=== PATIENT | male | born 1965 | race Caucasian/White ===

== ENCOUNTER → 2016-07-11 | Outpatient (CLI) | payer OTHER ==
--- NOTE | 2016-07-11 14:44 | CT ---
CT Left Lower Extremity History: Preoperative evaluation for left hip replacement. Comparison: Left hip April 18, 2016. Technique: Spiral imaging was obtained through the left hip at 1.25-mm slice thickness along with spi ral imaging through the left knee at 2.5-mm slice thickness. Data was transmitted for subsequent SAMIA hip replacement. Dose reduction techniques were utilized. Findings: The left hip joint demonstrates severe hip joint space narrowing with osteophyte formation, subchondral cyst formation, and hip joint space narrowing. Mild osteoarthritis is present in the rig ht hip. Moderate degenerative change is present in the lumbar spine, eccentric to the right at L4-L5 and left at L5-S1. Moderate to severe bilateral neural foraminal stenosis is present from L4 through S1. Bridging osteophytes span the sacroiliac joints bilaterally. The soft tissues are unremarkable. There is mild degenerative change in the knee with small tricompartmental osteophytes without signifi cant joint space narrowing. Impression: 1. Degenerative changes in the left hip as detailed above. Data was transmitted for subsequent SAMIA h ip replacement surgery. 2. Moderate degenerative change in the lumbar spine. 3. Degenerative change in the sacroiliac joints. 4. Additional findings as above.
== END ==
LOC: FIMAGING 13:46
PROVIDERS: ATTEND Orthopaedic Surgery
DX: Z01.818 Encounter for other preprocedural examination (principal); M16.0 Bilateral primary osteoarthritis of hip; M51.36 Other intervertebral disc degeneration, lumbar region; M51.37 Other intervertebral disc degeneration, lumbosacral region

== ENCOUNTER 2016-07-15 10:18 | Inpatient (IN) | payer OTHER ==
[~2016-07-15 10:18] MED LIST: ACETAMINOPHEN 325 MG TAB PO ONE; CEFAZOLIN 2 GM/DEXTR 100 ML IV ONE; CHLORHEXIDINE GLUC HIBICLENS 118 ML BTL TP ONE; DEXAMETHASONE 4 MG/ML VIAL IVP ONE; FAMOTIDINE 20 MG TAB PO ONE; ROPI/epiNEPH/KETOROLAC JOINT COCKTAIL IU ONE; SKIN ADHESIVE (DERMABOND) 1 EACH TP ONE; TRANEXAMIC ACID 3,000 MG in NS 50 ML IRR ONE; TRANEXAMIC ACID 3,000 MG/50 ML BAG IRR ONE
[2016-07-15] MEDS ORDERED: LIDOCAINE 1% 5 ML SDV ONE (10:57)
[2016-07-15] MEDS ORDERED: FAMOTIDINE 20 MG TAB ONE (11:29)
[2016-07-15] MEDS ORDERED: DEXAMETHASONE 4 MG/ML VIAL ONE (11:30)
[2016-07-15] MEDS ORDERED: ACETAMINOPHEN 325 MG TAB ONE (11:30)
[2016-07-15] MEDS ORDERED: CEFAZOLIN 2 GM/DEXTROSE/100 ML BAG IV ONE (11:30)
[2016-07-15] MEDS ORDERED: MIDAZOLAM 2 MG/2 ML VIAL ONE (12:27)
[2016-07-15] MEDS ORDERED: fentaNYL 100 MCG/2 ML INJ ONE (12:40)
[2016-07-15] MEDS ORDERED: PROPOFOL/EMULSION 500 MG/50 ML BOTTLE IV ONE ×2 (12:48→13:26)
[2016-07-15] MEDS ORDERED: LACTULOSE 20 GM/30 ML UDCUP PO PRN (12:58)
[2016-07-15] MEDS ORDERED: TEMAZEPAM 15 MG CAP PO PRN (12:58)
[2016-07-15] MEDS ORDERED: ONDANSETRON DISINTEGRATING 4 MG TAB PO PRN (12:58)
[2016-07-15] MEDS ORDERED: DIPHENOXYLATE/ATROPINE LOMOTIL 1 TAB PO PRN (12:58)
[2016-07-15] MEDS ORDERED: PROMETHAZINE HCL 25 MG SUPPR PR PRN (12:58)
[2016-07-15] MEDS ORDERED: MAGNESIUM HYDROXIDE 30 ML UDCUP PO PRN (12:58)
[2016-07-15] MEDS ORDERED: ONDANSETRON 4 MG/2 ML VIAL IVP PRN (12:58)
[2016-07-15] MEDS ORDERED: PROMETHAZINE HCL 25 MG/ML INJ IVP PRN (12:58)
[2016-07-15] MEDS ORDERED: METOCLOPRAMIDE 10 MG/2 ML VIAL IVP PRN (12:58)
[2016-07-15] MEDS ORDERED: BISACODYL 10 MG SUPP PR PRN (12:58)
[2016-07-15] MEDS ORDERED: diphenhydrAMINE 25 MG CAP PO PRN (12:58)
[2016-07-15] MEDS ORDERED: PHARMACY PAIN CONSULT 1 EA MISC PRN (12:58)
[2016-07-15] MEDS ORDERED: POLYETHYLENE GLYCOL 3350 17 GM PKT PO PRN (12:58)
[2016-07-15] MEDS ORDERED: SKIN ADHESIVE (DERMABOND) 1 EACH TP ONE (13:54)
--- NOTE | 2016-07-15 15:02 | POSTOPPROG ---
Post Op Note Date of Operation: 07/15/16 Surgeon: Josi Bowen Electrotype Molder: Concepcion Bowen PAc Anesthesiologist: Warm Anesthesia: Spinal Pre-op Diagnosis: L hip DJD Post-op Diagnosis: same Indication: PAIN Procedure: LTHA with robotic assist Findings: DJDhip Inf/Abcess present in the surg proc area at time of surgery?: No EBL: 100-500
--- NOTE | 2016-07-15 15:12 | DX ---
Pelvis Single View HISTORY: Hip pain. Postoperative evaluation. COMPARISON: March 2016. FINDINGS: Post surgical changes are seen over interval of a left total hip arthroplasty with good ali gnment and appearance. No evidence for periprosthetic lucency or fracture or dislocation. There is ap propriate soft tissue change for the immediate post surgical appearance. Mild degenerative change is seen in the right hip. There is osseous fullness superiorly on the right and possible subcortical cys t suggesting underlying femoral acetabular impingement, cam type. Degenerative change is seen in the lower lumbar spine. IMPRESSION: Postoperative changes of a left total hip arthroplasty with good alignment and appearance .
--- NOTE | 2016-07-15 16:14 | DX ---
Interoperative fluoroscopy for hip surgery. HISTORY: Left hip surgery. Pain. Fluoroscopy time 2.4 seconds. Cumulative dose 0.3 mGy. FINDINGS: Intraoperative image demonstrates postsurgical changes of the left hip arthroplasty in prog ress with no evidence for complication. IMPRESSION: Intraoperative fluoroscopy provided for left hip surgery.
[2016-07-15] MEDS: oxyCODONE IR 5 MG TAB PO PRN ×4 (16:15→23:05)
[2016-07-15] MEDS: LR 1,000 ML IV SCH (16:37)
[2016-07-15] MEDS: CYCLOBENZAPRINE 10 MG TAB PO PRN (16:54)
[2016-07-15] MEDS: ACETAMINOPHEN 325 MG TAB PO SCH (17:01)
[2016-07-15] MEDS: ASPIRIN 325 MG TAB PO SCH (19:56)
[2016-07-15] MEDS: FAMOTIDINE 20 MG TAB PO SCH (19:57)
[2016-07-15] MEDS: ceFAZolin 2 GM/DEXTROSE 100 ML IV SCH (19:57)
[2016-07-15] MEDS: SENNOSIDES/DOCUSATE SODIUM TAB PO SCH (19:59)
--- NOTE | 2016-07-15 22:06 | GOP ---
[f rep st] OPERATIVE REPORT DATE OF OPERATION: 07/15/2016 SURGEON: David Bowen MD FLEET MANAGER/DISPATCH: Concepcion Bowen PA-C ANESTHESIA: Spinal. PREOPERATIVE DIAGNOSIS: Left hip osteoarthritis. POSTOPERATIVE DIAGNOSIS: Left hip osteoarthritis. PROCEDURE PERFORMED: Left total hip arthroplasty with computer navigation and robotic assist. FINDINGS: ESTIMATED BLOOD LOSS: 200 cc. IMPLANTS: Accolade II size 5 at 127, acetabular component a 54 mm Tritanium. The liner is a Trident X3 36 mm. The head is a Biolox Delta 36 mm +0. INDICATIONS: The patient has progressively worsening arthritis of the hip which has failed medical management. The patient understands the treatment option including continued non-operative care and has selected surgical intervention. The patient has decided to undergo total hip arthroplasty via the direct anterior approach understanding the risks of the procedure including , but not limited to, neurovascular injury, infection, persistent pain, component wear and loosening, deep venous thrombosis, pulmonary embolism, limb length inequality (including dislocation), and intraoperative fractures. DESCRIPTION OF PROCEDURE: After proper identification of the patient including verification and marking the surgical site, the patient was brought to the operating room and placed in the supine position. All bony prominences were well padded. Anesthesia was induced without complication and intravenous prophylactic antibiotics were administered prior to skin incision. After prepping and draping in the usual sterile fashion, attention was drawn to the contralateral pelvis for attachment of the computer navigation tracker. Three percutaneous incisions were made over the iliac crest and the pelvic tracker was affixed using threaded 3.5 mm pins yielding excellent fixation. Using computer navigation the patient's leg length and topographical pelvic anatomy was registered without complication. Attention was then drawn to surgical exposure of the hip. An incision was made with a #10 Bard Hang blade starting 3 cm lateral and 3 cm distal to the anterior superior iliac spine measuring 8 cm to 10 cm and coursing distally toward the greater trochanter. The skin and subcutaneous tissues were divided sharply down the fascia mani. The fascia mani was incised in line with the skin incision exposing the underlying tensor fascia mani muscle. This muscle was bluntly elevated from the fascia and the first extracapsular Cobra retractor was placed laterally at the junction of the superior femoral neck and greater trochanter. The lateral femoral circumflex vessels were identified, cauterized and divided with the Aquamantys bipolar cautery. The deep investing fascia of the TFL was divided to allow proper mobilization of the muscle preventing damage during retraction. The reflected head of the rectus femoris muscle was elevated off the anterior hip capsule and a medial Cobra retractor was placed just proximal to the lesser trochanter. The anterior capsulotomy was made sharply from the superolateral acetabulum to the saddle junction of the superior femoral neck and greater trochanter, then coursing inferomedial towards the lesser trochanter. The retractors were then placed in the intracapsular position for femoral neck osteotomy. Corresponding to preoperative templating the osteotomy was made with the oscillating saw protecting the greater trochanter and soft tissues. The femoral head was removed from the acetabulum with a corkscrew and confirmed to be severely arthritic with exposed bone, deformity and osteophytes. Similar finding were confirmed in the acetabulum. The Arch table extension was then placed in 40 degrees external rotation. Attention was then drawn to the acetabular preparation. After placement of the anterior and posterior Cobra retractors outside the labrum and intrascapular the circumferential labrum was removed sharply. The foveal contents were then removed and hemostasis obtained with cautery. The anatomy of the acetabulum was then registered using computer navigation. The first reamer selected was sized using the removed femoral head. Reaming began with robotic assist at 40 degrees of abduction and 20 degrees of anteversion using computer navigation. Reaming ceased 0 mm less than the definitive acetabular component. The final acetabular component was inserted using the computer to achieve proper orientation yielding excellent purchase and stability in the acetabulum. The final acetabular liner was then placed and its seating confirmed. Attention was then turned to the femur. The Arch table extension was placed in extension and adduction delivering the osteotomized femoral neck into the wound. A 2-pronged femoral elevator was placed at the calcar and another at the tip of the greater trochanter. The posterolateral capsule was released with cautery allowing mobilization of the femur lateral and anterior for preparation. The external rotators were visualized and preserved. A curette and rongeur were used to open the starting point for broaching. Serial broaching started with the #0 broach and ended with the broach that exhibited excellent fit in the proximal femur. A change in pitch during mallet strikes was accompanied by the inability to advance the broach any further. The trial reduction was performed and fluoroscopic navigation was utilized to check limb length. Adjustments were made to equalize limb length accordingly. After the final trials were accepted they were removed and the wound was copiously lavaged. The femoral component was seated to the same depth as the final broach and the femoral head was impacted onto the clean trunnion. The hip was then reduced for the final time and once more fluoroscopic navigation used to check that limb length equality was achieved. The wound was irrigated and closed in layers, the fascia mani with 2-0 Quill, the subcutaneous tissue with a 2-0 Quill, and the skin with Dermabond, including the small incisions for computer navigation. Sterile dressings were applied. Final sharps and sponge counts were accurate. The patient was then transferred to a hospital bed and brought to the recovery room in stable condition. /[id number]/MODL MTDD
[2016-07-16] MEDS: ACETAMINOPHEN 325 MG TAB PO SCH ×2 (00:41→05:24)
[2016-07-16] MEDS: CYCLOBENZAPRINE 10 MG TAB PO PRN ×2 (00:44→09:14)
[2016-07-16] MEDS: LR 1,000 ML IV SCH (00:45)
[2016-07-16] MEDS: oxyCODONE IR 5 MG TAB PO PRN ×3 (02:12→08:34)
[2016-07-16 05:05] LABS: HEMOGLOBIN 11.9 g/dL (13.7-17.5)
[2016-07-16] MEDS: ceFAZolin 2 GM/DEXTROSE 100 ML IV SCH (05:25)
[2016-07-16 08:02] VITALS: BP 104/72; PULSE 57; RESP 14; TEMP 97.7; O2SAT 95
[2016-07-16] MEDS: SENNOSIDES/DOCUSATE SODIUM TAB PO SCH (08:33)
[2016-07-16] MEDS: ASPIRIN 325 MG TAB PO SCH (08:33)
[2016-07-16] MEDS: FAMOTIDINE 20 MG TAB PO SCH (08:34)
--- NOTE | 2016-07-16 10:16 | SOAPPROG ---
SOAP Progress Note Assessment/Plan: Assessment: Josr is doing well POD 1 s/p L JC 1. pain management: pain well controlled on oral pain medications. 2. VTE ppx: recommend ASA 325 mg daily. cont KAROL jackson 3. Anemia: level is expected initially postop. asymptomatic. 4. d/c planning: d/c to home today. Plan: 07/16/16 10:15 Subjective: Josr is doing well today, denies SOB, chest pain and N/V. Objective: Vital Signs Temp Pulse Resp BP Pulse Ox 36.5 C 57 L 14 104/72 95 07/16/16 08:00 07/16/16 08:00 07/16/16 08:00 07/16/16 08:00 07/16/16 08:00 Laboratory Results 07/16/16 04:19 07/15/16 07/16/16 07/17/16 05:59 05:59 05:59 Intake Total 2500 Output Total 400 1375 Balance -400 1125 LLE: incision dressing is clean and dry, NVI, +pf/df ICD10 Worksheet Patient Problems: Problems Problem Status Diagnosed Primary localized osteoarthritis of left hip Acute
--- NOTE | 2016-07-21 10:57 | GDS ---
[f rep st] DISCHARGE SUMMARY ADMISSION DIAGNOSIS: Left hip osteoarthritis. DISCHARGE DIAGNOSIS: Left hip osteoarthritis. PROCEDURE: Left total hip arthroplasty. VTE PROPHYLAXIS: Aspirin recommended for 3 weeks daily. BRIEF DESCRIPTION OF HOSPITAL STAY: Patient was admitted for an elective joint arthroplasty. The pa tient tolerated the procedure well and has passed physical therapy. The patient was given appropriat e antibiotic prophylaxis and venous thromboembolism prophylaxis. The patient's pain was well control led on oral pain medication, patient was holding down food, and had urinated. Decision was made to d ischarge the patient. The patient was given post-operative prescriptions pre-operatively. PLAN: Please follow up as scheduled on 08/04 at 10:00 a.m. /[id number]/MODL
== END 2016-07-16 11:04 | disposition home or self-care (01) | DRG 470 ==
LOC: F3N 10:18
PROVIDERS: ADMIT Orthopaedic Surgery; ATTEND Orthopaedic Surgery
PROC: 8E0YXCZ Robotic Assisted Procedure of Lower Extremity (ICD-10-PCS; principal; 2016-07-15 12:15)
PROC: 0SRB04Z Replacement of Left Hip Joint with Ceramic on Polyethylene Synthetic Substitute, Open Approach (ICD-10-PCS; principal; 2016-07-15 12:15)
DX: M16.12 Unilateral primary osteoarthritis, left hip (principal)
CPT/HCPCS: 97110-GP; 97161-GP; 97165-GO; J0171; J0690; J1100; J1885; J2250; J2704; J2795; J3010

== ENCOUNTER 2018-08-24 21:35 | Emergency (ER) | payer SELFPAY ==
[2018-08-24 21:43] VITALS: BP 131/95
[2018-08-24] MEDS ORDERED: CLINDAMYCIN 150 MG CAP PO ONE (23:16)
[2018-08-24] MEDS ORDERED: CLINDAMYCIN 150MG PREPACK#6 BTL TAKEHOME ONE (23:16)
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
== END 2018-08-24 23:41 | disposition home or self-care (01) ==
DX: L03.116 Cellulitis of left lower limb (principal); V18.0XXA Pedal cycle driver injured in noncollision transport accident in nontraffic accident, initial encounter; Y92.480 Sidewalk as the place of occurrence of the external cause

== ENCOUNTER 2018-08-28 21:49 | Emergency (ER) | payer OTHER ==
[2018-08-28] MEDS ORDERED: CLINDAMYCIN 150 MG CAP PO ONE (22:15)
[2018-08-28 23:02] LABS: PLATELET COUNT 195 10^3/uL (150-400)
[2018-08-28] MEDS ORDERED: LORazepam 1 MG TAB PO ONE (23:16)
--- NOTE | 2018-08-29 00:48 | EDPHY ---
H & P Stated Complaint: RLL infection,worsening on antibiotics, fever-like "I don't feel safe@home" - Personal History Current Tetanus/Diphtheria Vaccine: Unsure Current Tetanus Diphtheria and Acellular Pertussis (TDAP): Unsure - Medical/Surgical History Hx Asthma: No Hx Chronic Respiratory Disease: No Hx Diabetes: No Hx Cardiac Disease: No Hx Renal Disease: No Hx Cirrhosis: No Hx Alcoholism: Yes Hx HIV/AIDS: No Hx Splenectomy or Spleen Trauma: No Other PMH: LISA HIP REPLACEMENT, ESOPHAGEAL SX, ANKLE SX, MULTIPLE ORTHO SX. - Social History Smoking Status: Never smoked Time Seen by Provider: 08/28/18 22:04 HPI/ROS: Chief complaint: Right lower leg infection History of present illness: This is a 53-year-old male who presents to the emergency department for an ongoing right lower leg infection. Patient was seen in this emergency department 4 days ago. He was diagnosed with a cellulitis and started on clindamycin. Although it has only been 4 days he states he has finished a course of clindamycin, having taking the pills exactly as directed. He denies worsening of symptoms including no increasing redness swelling or pain. There is no associated red streaking up the leg. No fevers. Secondary complaint is he states he does not "feel safe at home."The talk with him he states he feels people are following him. The government specifically FBI is after him. He had called a friend for help who came into the emergency room with him. The friend stated to me that he told her that he wanted to go home and jump off the room. He denies suicidal or homicidal ideation to me. Review of systems: A 10 point review of systems was obtained and other than described above was negative. (John Evans) - Physical Exam Exam: General Appearance: Alert, no distress. Eyes: Pupils equal and round no pallor or injection. ENT, Mouth: Mucous membranes moist. Respiratory: There are no retractions, lungs are clear to auscultation. Cardiovascular: Regular rate and rhythm. Gastrointestinal: Abdomen is soft and non tender, no masses, bowel sounds normal. Neurological: Alert. Skin: Mild erythema and edema to the right lower extremity. It appears to be receding from the demarcation line placed previously. Musculoskeletal: Extremities are symmetrical, full range of motion. Psychiatric: Patient is oriented X 3, there is no agitation. (Jonh Evans) Constitutional: Initial Vital Signs Temperature (C) 37.2 C 08/28/18 21:58 Heart Rate 61 08/28/18 21:58 Respiratory Rate 18 08/28/18 21:58 Blood Pressure 121/66 H 08/28/18 21:58 O2 Sat (%) 96 08/28/18 21:58 O2 Delivery Mode Room Air Allergies/Adverse Reactions: No Known Allergies Allergy (Verified 08/28/18 21:57) Home Medications: Medication Instructions Recorded fluvoxaMINE MALEATE [Luvox 100 MG 100 mg PO BID 06/09/16 (*)] Acetaminophen [Tylenol 325mg (*)] 650 mg PO Q6HRS #0 tab 07/16/16 Aspirin [Aspirin 325 mg (*)] 325 mg PO DAILY #0 tab 07/16/16 Clindamycin HCl [Clindamycin] 300 mg PO TID #30 cap 08/24/18 clonazePAM [Klonopin] 08/28/18 Clindamycin HCl [Clindamycin] 300 mg PO TID 7 Days cap 08/29/18 Medical Decision Making ED Course/Re-evaluation: Patient is seen under the supervision of my secondary supervising physician Dr. Rc Weiss. Patient presents to the emergency department primarily for concern of ongoing right lower extremity infection. He does appear to have an ongoing cellulitis. It it does appear to be improving based on demarcation lines. He is nontoxic. I believe he can continue on with oral antibiotic therapy. However discussion with him he does appear to be paranoid. He does not seem to be able to care for himself. I do not believe he is safe for discharge at this time. He is placed on a detained. Medically evaluated and cleared. Psychiatric evaluation is pending at time of dictation. Care of patient turned over to Dr. Weiss end of shift. (John Evans) Patient was evaluated by [facility]. They felt there is no acute psychosis. The patient could be safely discharged to follow up with the primary care physician. The patient will continue to take his antibiotics. He feels comfortable to plan. He is given warnings prior to leaving. (Julieth Pugh) Differential Diagnosis: Included but not limited to cellulitis, abscess, lymphangitis, doubtful necrotizing fasciitis or sepsis. Also included but not limited to schizophrenia, bipolar, depression, substance abuse (John Evans) Other Provider: 0030 care assumed from DELONTE Evans pending mental health evaluation. 0700 patient signed out to Dr. Puhg pending mental health evaluation. (Rc Martinez) - Data Points Laboratory Results: Laboratory Results 08/28/18 22:46 08/28/18 22:46 Medications Given: Discontinued Medications Clindamycin (Clindamycin) 300 mg PO EDNOW ONE PRN Reason: Protocol Stop: 08/28/18 22:16 Last Admin: 08/28/18 22:39 Dose: 300 mg Lorazepam (Ativan) 1 mg PO EDNOW ONE Stop: 08/28/18 23:17 Last Admin: 08/28/18 23:20 Dose: 1 mg Departure - Departure Disposition: Home, Routine, Self-Care Clinical Impression: Cellulitis Condition: Good Instructions: Clindamycin (By mouth), Cellulitis (ED) Additional Instructions: Keep your appointment with your physician on Monday. Return with worsening symptoms or any other concerns. Referrals: JOHN HERCULES [Primary Care Provider] - 5-7 days, call for appt. Prescriptions: Clindamycin HCl [Clindamycin] 300 mg PO TID 7 Days cap
[2018-08-29 08:43] VITALS: BP 118/57
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
--- NOTE | 2018-08-29 09:29 | ASMTTCLDSP ---
TLC Discharge Disposition Disposition: Answers: Discharge If Answers: Yes DISCHARGED: Patient/family given suicide hotline info & SAMHSA brochure? Disposition Notes: Notes: Pt stated commitment or ability to keep self safe, denied thoughts of suicide/self harm or harm to others. Pt expressed a desire to f/u with his psychiatrist appointment with Dr. Melo on Monday08/31/18 at 9 a.m. Pt was given local hotline information and SAMHSA brochure After an Attempt. Discharge Concerns/Recommendations: Notes: In consultation with [facility] ED physician, Julieth Pugh MD, Dr. Pugh concurred that pt does not appear to meet 27-65 criteria requiring psychiatric hospitalization as pt does not appear to be an imminent risk of harm to self/others/gravely disabled due to a mental illness condition. Was patient given the Answers: Not applicable Inpatient Behavioral Health Prohibited Belongings List while in the ED? Date Signed: 08/29/2018 09:29 AM Electronically Signed By:Nas Maza
== END 2018-08-29 08:43 | disposition home or self-care (01) ==
DX: L03.115 Cellulitis of right lower limb (principal); Z96.643 Presence of artificial hip joint, bilateral
CPT/HCPCS: 80305; G0480